=== PATIENT | female | born 1950 | race Caucasian/White ===

== ENCOUNTER 2019-04-14 17:04 | Emergency (ER) | payer MEDICARE, BC ==
[~2019-04-14] VITALS: Ht 165.1 cm; Wt 65.8 kg
[~2019-04-14 17:04] MED LIST: ATOR20TA37 PO; BUPR300T4 PO; RIVA20TA PO; TRAZ150T62 PO
[2019-04-14] MEDS ORDERED: HYDROcodone/APAP 5/325 TABLET ONE (17:41)
[2019-04-14] MEDS ORDERED: HYDROcodone/APAP 5/325 TABLET PO ONE (18:00)
[2019-04-14 18:46] VITALS: BP 154/60
== END 2019-04-14 18:48 | disposition home or self-care (01) ==
LOC: ED 18:20
DX: S06.0X0A Concussion without loss of consciousness, initial encounter (principal); S02.2XXA Fracture of nasal bones, initial encounter for closed fracture; W01.0XXA Fall on same level from slipping, tripping and stumbling without subsequent striking against object, initial encounter; Y93.89 Activity, other specified; Y92.89 Other specified places as the place of occurrence of the external cause; Y99.8 Other external cause status
CPT/HCPCS: 70450; 70486; 72125; 99284

== ENCOUNTER 2019-05-11 08:20 | Day surgery (SDC) | payer MEDICARE, BC | END 2019-05-11 09:30 | disposition home or self-care (01) | LOC: OUT 08:20 | PROVIDERS: ATTEND Internal Medicine Gastroenterology | DX: Z02.9 Encounter for administrative examinations, unspecified (principal) ==

== ENCOUNTER 2019-05-11 09:38 | Emergency (ER) | payer MEDICARE, BC ==
[~2019-05-11] VITALS: Ht 165.1 cm; Wt 57.2 kg
[2019-05-11 09:39] VITALS: BP 120/71
--- NOTE | 2019-05-11 09:50 | NUR ---
requested records from [facility]
[2019-05-11] MEDS ORDERED: DICYCLOMINE 10 MG/ML, 2ML IM ONE (10:00)
[2019-05-11] MEDS ORDERED: DICYCLOMINE 10 MG/ML, 2ML ONE (10:04)
[2019-05-11 10:22] LABS: BASOPHILS # (AUTO) 0.05 x10^3/uL (0-0.1); BASOPHILS % (AUTO) 1 % (0-1); EOSINOPHILS # (AUTO) 0.04 x10^3/uL (0-0.4); EOSINOPHILS % (AUTO) 1 % (1-7); LYMPHOCYTES # (AUTO) 1.34 x10^3/uL (1-3.4); LYMPHOCYTES % (AUTO) 24 % (22-44); MD NO; MEAN CORPUSCULAR HEMOGLOBIN 28.6 pg (27.0-34.8); MEAN CORPUSCULAR HGB CONC 32.5 g/dL (32.4-35.8); MEAN CORPUSCULAR VOLUME 88.2 fL (80-100); MEAN PLATELET VOLUME 7.6 fL (7.4-10.4); MONOCYTES # (AUTO) 0.57 x10^3/uL (0.2-0.8); MONOCYTES % (AUTO) 10 % (2-9); NEUTROPHILS # (AUTO) 3.63 x10^3/uL (1.8-6.8); NEUTROPHILS % (AUTO) 65 % (42-75); PLATELET COUNT 331 x10^3/uL (130-400); RED BLOOD COUNT 5.77 x10^6/uL (3.82-5.3); RED CELL DISTRIBUTION WIDTH 16.6 % (9.6-15.2)
[2019-05-11 10:33] LABS: ALBUMIN 3.1 g/dL (3.4-5.0); ANION GAP 6 mmol/L (5-15); CALCIUM 9.9 mg/dL (8.5-10.1); CHLORIDE 103 mmol/L (98-107)
[2019-05-11 10:36] LABS: ALANINE AMINOTRANSFERASE 14 U/L (12-78); ALKALINE PHOSPHATASE 103 U/L (45-117); BILIRUBIN,TOTAL 0.6 mg/dL (0.2-1.0); CREATININE 0.73 mg/dL (0.55-1.02)
[2019-05-11] MEDS ORDERED: PINK LADY ENEMA 490 ML BOTTLE PR ONE (11:00)
--- NOTE | 2019-05-11 11:20 | NUR ---
PHARMACY REQUEST SLIP SENT.
--- NOTE | 2019-05-11 11:24 | NUR ---
2nd request to [facility] for records.
--- NOTE | 2019-05-11 11:31 | NUR ---
PT PLACED ON 2L O2 D/T LOW SATS. SPO2 NOW 91-92%.
--- NOTE | 2019-05-11 11:54 | NUR ---
PT GIVEN ENEMA PER AUG. NO EXCREMENT RETURNED. PT STILL C/O BELLY PAIN. STATES "I GUESS I'LL GET A BAM DOG ON MY WAY HOME". CALL LIGHT IN REACH. ERP NOTIFIED.
== END 2019-05-11 13:04 | disposition home or self-care (01) ==
LOC: ED 10:16
DX: K59.00 Constipation, unspecified (principal); R10.84 Generalized abdominal pain; F17.200 Nicotine dependence, unspecified, uncomplicated; Z85.038 Personal history of other malignant neoplasm of large intestine
CPT/HCPCS: 36415; 74021; 80053; 83605; 85025; 93005; 96372; 99284; J0500

== ENCOUNTER 2019-07-19 10:16 | Day surgery (SDC) | payer MEDICARE, BC ==
[~2019-07-19] VITALS: Ht 165.1 cm; Wt 60.3 kg
[~2019-07-19 10:16] MED LIST changes: -BUPR300T4 PO; +BUPR300T94 PO
[2019-07-19] MEDS ORDERED: LACTATED RINGERS 1,000 ML IV SCH (10:42)
[2019-07-19 10:46] VITALS: BP 167/92
[2019-07-19] MEDS ORDERED: LIDOCAINE-MPF 1%, 2ML INFIL ONE (11:00)
[2019-07-19] MEDS ORDERED: DEXAMETHASONE 4 MG/ML, 1ML ONE ×2 (12:06)
[2019-07-19] MEDS ORDERED: ONDANSETRON 2MG/ML, 2ML ONE (12:07)
[2019-07-19] MEDS ORDERED: PROPOFOL 10 MG/ML, 20ML ONE ×3 (12:09→12:18)
[2019-07-19] MEDS ORDERED: PROPOFOL 50 ML ONE (12:30)
== END 2019-07-19 14:15 | disposition home or self-care (01) ==
LOC: OUT 10:16
PROVIDERS: ATTEND Internal Medicine
DX: Z08 Encounter for follow-up examination after completed treatment for malignant neoplasm (principal); K91.71 Accidental puncture and laceration of a digestive system organ or structure during a digestive system procedure; D12.5 Benign neoplasm of sigmoid colon; D12.3 Benign neoplasm of transverse colon; K57.30 Diverticulosis of large intestine without perforation or abscess without bleeding; K21.9 Gastro-esophageal reflux disease without esophagitis; K63.89 Other specified diseases of intestine; I69.354 Hemiplegia and hemiparesis following cerebral infarction affecting left non-dominant side; E03.9 Hypothyroidism, unspecified; D64.9 Anemia, unspecified; Z79.01 Long term (current) use of anticoagulants; Z79.899 Other long term (current) drug therapy; Z88.0 Allergy status to penicillin; Z88.2 Allergy status to sulfonamides; Z88.6 Allergy status to analgesic agent; Z88.8 Allergy status to other drugs, medicaments and biological substances; Z85.038 Personal history of other malignant neoplasm of large intestine; Z90.49 Acquired absence of other specified parts of digestive tract; Z98.84 Bariatric surgery status; Z80.0 Family history of malignant neoplasm of digestive organs; Y83.8 Other surgical procedures as the cause of abnormal reaction of the patient, or of later complication, without mention of misadventure at the time of the procedure
CPT/HCPCS: 45380; 45385; 88305; J1100; J2405; J2704; J7120

== ENCOUNTER 2020-06-09 21:17 | Emergency (ER) | payer MEDICARE, BC ==
[~2020-06-09] VITALS: Ht 165.1 cm; Wt 60.0 kg
--- NOTE | 2020-06-09 21:21 | NUR ---
LATE ENTRY DUE TO PATIENT CARE: PATIENT MICHELE WRIGHT WITH CHIEF C/O GLF. PER EMS PATIENT WAS PLAYING WITH HER KITTEN AND GOT "SCRATCHED UP" EMS REPORTS 50 mL BLOOD LOSS. PATIENT WAS IN BATHROOM CLEANING UP AND FELL, DENIES LOC, UNSURE IF SHE HIT HER HEAD, AND STATES SHE HIT HER HIP BUT UNSURE WHICH ONE SHE HURT. SHE STATES HER RIGHT HIP HURTS, BUT SHE STATES IT'S FROM HIP SURGERY SHE HAD IN 2019 AFTER SHE BROKE IT. 20 GAUGE IV STARTED RIGHT AC EN ROUTE, NO MEDICATION GIVEN. PER EMS PATIENT STABLE EN ROUTE. NADN, VSS, SIDE RAILS UP X2, CALL LIGHT WITHIN REACH.
[2020-06-09 22:17] LABS: BASOPHILS % (AUTO) 1 % (0-1); EOSINOPHILS % (AUTO) 1 % (1-7); LYMPHOCYTES % (AUTO) 15 % (22-44); MEAN CORPUSCULAR HEMOGLOBIN 30.9 pg (27.0-34.8); MEAN CORPUSCULAR HGB CONC 33.7 g/dL (32.4-35.8); MEAN PLATELET VOLUME 8.5 fL (7.4-10.4); MONOCYTES % (AUTO) 7 % (2-9); NEUTROPHILS % (AUTO) 76 % (42-75); PLATELET COUNT 243 x10^3/uL (130-400); RED BLOOD COUNT 4.93 x10^6/uL (3.82-5.3); RED CELL DISTRIBUTION WIDTH 15.2 % (9.6-15.2)
[2020-06-09 22:22] LABS: ALBUMIN 3.1 g/dL (3.4-5.0); ANION GAP 6 mmol/L (5-15); CALCIUM 8.6 mg/dL (8.5-10.1); CHLORIDE 111 mmol/L (98-107); CREATININE 0.72 mg/dL (0.55-1.02)
[2020-06-09 22:23] LABS: MD NO
--- NOTE | 2020-06-09 23:48 | NUR ---
REPORT FROM YADIRA HAGAN ASSUMING CARE OF PT. PT AMBULATORY PER REPORT ERP AWARE
[2020-06-09 23:50] VITALS: BP 131/64
== END 2020-06-09 23:58 | disposition home or self-care (01) ==
LOC: ED 22:16
DX: S91.114A Laceration without foreign body of right lesser toe(s) without damage to nail, initial encounter (principal); S50.811A Abrasion of right forearm, initial encounter; S60.511A Abrasion of right hand, initial encounter; S50.812A Abrasion of left forearm, initial encounter; R06.02 Shortness of breath; R00.9 Unspecified abnormalities of heart beat; R94.31 Abnormal electrocardiogram [ECG] [EKG]; F17.210 Nicotine dependence, cigarettes, uncomplicated; Z86.73 Personal history of transient ischemic attack (TIA), and cerebral infarction without residual deficits; Z85.038 Personal history of other malignant neoplasm of large intestine; W01.0XXA Fall on same level from slipping, tripping and stumbling without subsequent striking against object, initial encounter; Y93.89 Activity, other specified; Y92.89 Other specified places as the place of occurrence of the external cause; Y99.8 Other external cause status
CPT/HCPCS: 36415; 70450; 71045; 80048; 82040; 85025; 93005; 99285; 99406

== ENCOUNTER 2021-01-07 21:51 | Emergency (ER) | payer MEDICARE, BC ==
[~2021-01-07] VITALS: Ht 162.6 cm; Wt 59.1 kg
[2021-01-07] MEDS ORDERED: METHOCARBAMOL 750 MG TABLET PO ONE (22:30)
[2021-01-07] MEDS ORDERED: HYDROcodone/APAP 5/325 TABLET PO ONE (22:30)
[2021-01-07] MEDS ORDERED: LIDODERM 5% PATCH TD ONE ×2 (22:30→22:46)
[2021-01-07] MEDS ORDERED: METHOCARBAMOL 750 MG TABLET ONE (22:45)
[2021-01-07] MEDS ORDERED: HYDROcodone/APAP 5/325 TABLET ONE (22:46)
[2021-01-07] MEDS ORDERED: AA8/1CAP3 PO (23:15)
[2021-01-07] MEDS ORDERED: APIX5TAB4 PO (23:15)
[2021-01-07] MEDS ORDERED: GABA-827 PO (23:16)
--- NOTE | 2021-01-07 23:49 | NUR ---
Note tobyone in [facility] [place] - 01/07/21 at 2358 by [email or web address] DANNI JORGE TO GIVE 25% ALBUMIN 50ML FOR HYPOTENSION Addendum: 01/07/21 at 2352 by [email or web address] Amendment undone in [facility] [place] - 01/07/21 at 2358 by [email or web address] ALBUMIN 25% 100ML IN CORRECTION
--- NOTE | 2021-01-07 23:53 | NUR ---
Audra raines in [facility] - 01/07/21 at 2358 by [email or web address] DANNI Dawn SAID THAT GOAL BP IN THE 80'S SYSTOLIC
[2021-01-08] MEDS ORDERED: ALBUMIN HUMAN 25% 100 ML IV ONE
[2021-01-08 00:18] LABS: BASOPHILS % (AUTO) 1 % (0-1); EOSINOPHILS % (AUTO) 0 % (1-7); LYMPHOCYTES % (AUTO) 16 % (22-44); MEAN CORPUSCULAR HEMOGLOBIN 31.9 pg (27.0-34.8); MEAN CORPUSCULAR HGB CONC 33.6 g/dL (32.4-35.8); MEAN PLATELET VOLUME 8.7 fL (7.4-10.4); MONOCYTES % (AUTO) 7 % (2-9); NEUTROPHILS % (AUTO) 76 % (42-75); PLATELET COUNT 263 x10^3/uL (130-400); RED BLOOD COUNT 4.95 x10^6/uL (3.82-5.3); RED CELL DISTRIBUTION WIDTH 14.6 % (9.6-15.2)
[2021-01-08 00:29] LABS: ALBUMIN 3.2 g/dL (3.4-5.0); ANION GAP 3 mmol/L (5-15); CALCIUM 8.8 mg/dL (8.5-10.1); CHLORIDE 107 mmol/L (98-107); CREATININE 0.64 mg/dL (0.55-1.02)
[2021-01-08 00:33] LABS: TROPONIN I < 0.015 ng/mL (0.000-0.045)
[2021-01-08 01:48] VITALS: BP 134/65
--- NOTE | 2021-01-08 01:48 | NUR ---
GIA DRAPER SAID OKAY FOR PATIENT TO DISCHARGE HOME WITH SP02% AT 89%
== END 2021-01-08 02:06 | disposition home or self-care (01) ==
LOC: ED 22:34
DX: M54.5 Low back pain (principal); R00.1 Bradycardia, unspecified; R07.89 Other chest pain; F17.200 Nicotine dependence, unspecified, uncomplicated; Z86.73 Personal history of transient ischemic attack (TIA), and cerebral infarction without residual deficits; Z86.711 Personal history of pulmonary embolism; Z85.038 Personal history of other malignant neoplasm of large intestine
CPT/HCPCS: 36415; 71045; 80048; 82040; 83880; 84484; 85025; 93005; 99285

== ENCOUNTER 2021-01-27 21:50 | Inpatient (IN) | payer MEDICARE, BC ==
[~2021-01-27] VITALS: Ht 165.1 cm; Wt 72.4 kg
[~2021-01-27 21:50] MED LIST changes: +AA8/1CAP3 PO; +APIX5TAB4 PO; +GABA-827 PO
[2021-01-27] MEDS ORDERED: SODIUM CHLORIDE 0.9% 1,000 ML IV ONE (22:30)
[2021-01-27] MEDS ORDERED: SODIUM CHLORIDE FLUSH 10ML SYR IVF ONE (22:30)
[2021-01-27 22:33] LABS: BASOPHILS % (AUTO) 0 % (0-1); EOSINOPHILS % (AUTO) 0 % (1-7); LYMPHOCYTES % (AUTO) 3 % (22-44); MEAN CORPUSCULAR HGB CONC 33.9 g/dL (32.4-35.8); MONOCYTES % (AUTO) 4 % (2-9); NEUTROPHILS % (AUTO) 92 % (42-75); PLATELET COUNT 146 x10^3/uL (130-400); RED CELL DISTRIBUTION WIDTH 15.5 % (9.6-15.2)
[2021-01-27 22:46] LABS: ALBUMIN 2.6 g/dL (3.4-5.0); ANION GAP 8 mmol/L (5-15); CALCIUM 8.3 mg/dL (8.5-10.1); CHLORIDE 108 mmol/L (98-107)
--- NOTE | 2021-01-27 22:55 | NUR ---
Pt BIB [facility] from home for GLF. Pt states she has had multiple falls in the past couple days. No complaints of pain at this time. RA sat of 82%.
[2021-01-27 22:57] LABS: ALANINE AMINOTRANSFERASE 49 U/L (12-78); ALKALINE PHOSPHATASE 87 U/L (45-117); BILIRUBIN,TOTAL 0.7 mg/dL (0.2-1.0); CREATININE 1.02 mg/dL (0.55-1.02)
[2021-01-27] MEDS ORDERED: POTASSIUM CHLORIDE 40 MEQ in SODIUM CHLORIDE 0.9% 500 ML IV ONE (23:00)
[2021-01-27] MEDS ORDERED: MAGNESIUM SULFATE PMX 2GM/50ML 50 ML IV ONE (23:00)
[2021-01-27] MEDS ORDERED: POTASSIUM CHLORIDE 20 MEQ TAB.ER.PRT PO ONE (23:00)
[2021-01-27] MEDS ORDERED: MAGNESIUM SULFATE PMX 2GM/50ML 50 ML ONE (23:02)
[2021-01-27] MEDS ORDERED: POTASSIUM CHLORIDE 20 MEQ TAB.ER.PRT ONE (23:02)
--- NOTE | 2021-01-27 23:26 | NUR ---
meds admin, fluids infusing per order. pt tolerating well, nadn.
[2021-01-28] VITALS (7 sets, daily range): BP systolic 92–113; BP diastolic 52–72
--- NOTE | 2021-01-28 00:02 | NUR ---
smh at bedside for eval, straight cath ua after
[2021-01-28 00:28] LABS: MICROSCOPIC INDICATED
[2021-01-28] MEDS ORDERED: MELATONIN 5 MG TABLET PO PRN (00:30)
[2021-01-28] MEDS ORDERED: ONDANSETRON ODT 4 MG PO PRN (00:30)
[2021-01-28] MEDS ORDERED: DOCUSATE 100 MG CAPSULE PO PRN (00:30)
[2021-01-28] MEDS ORDERED: BISACODYL 10 MG SUPP PR PRN (00:30)
[2021-01-28] MEDS ORDERED: LABETALOL 5MG/ML, 20ML IVPush PRN (00:30)
[2021-01-28] MEDS ORDERED: POLYETHYLENE GLYCOL 17 GM PACKET PO PRN (00:30)
--- NOTE | 2021-01-28 01:03 | NUR ---
report called to Eusebia HAGAN in 341
[2021-01-28] MEDS ORDERED: CEFTRIAXONE 1,000 MG in DEXTROSE 5% 50 ML IVPB SCH (02:00)
[2021-01-28] MEDS: GABAPENTIN 300 MG CAPSULE PO SCH ×4 (02:31→20:24)
[2021-01-28] MEDS: ONDANSETRON 2MG/ML, 2ML IVPush PRN (02:31)
[2021-01-28] MEDS: NICOTINE 7 MG/24 HR PATCH.TD24 TD SCH (02:32)
[2021-01-28] MEDS: NS + 20MEQ KCL 1,000 ML IV SCH ×3 (03:09→18:51)
[2021-01-28] MEDS: TRAZODONE 150MG TABLET PO PRN (03:10)
[2021-01-28 05:13] LABS: ANION GAP 5 mmol/L (5-15); CALCIUM 8.1 mg/dL (8.5-10.1); CHLORIDE 112 mmol/L (98-107); CREATININE 0.86 mg/dL (0.55-1.02)
[2021-01-28] MEDS: APIXABAN 5 MG TABLET PO SCH ×2 (10:04→20:24)
[2021-01-28] MEDS: CHOLECALCIFEROL 1,000 UNIT TABLET PO SCH (10:04)
[2021-01-28] MEDS: ACETAMINOPHEN 325 MG TABLET PO PRN (15:05)
[2021-01-28] MEDS ORDERED: PIPERACILLIN/TAZO 3.375 GM in DEXTROSE 5% 50 ML IVPB SCH (15:30)
[2021-01-28] MEDS: CEFEPIME 2 GM in DEXTROSE 5% 100 ML IV SCH (18:10)
[2021-01-28] MEDS ORDERED: SODIUM CHLORIDE 0.9% 1,000ML IVBOLUS ONE (20:30)
[2021-01-29] MEDS: NICOTINE 7 MG/24 HR PATCH.TD24 TD SCH ×2 (01:36→20:00)
[2021-01-29] MEDS: CEFEPIME 2 GM in DEXTROSE 5% 100 ML IV SCH ×3 (01:36→18:16)
[2021-01-29 01:47] VITALS: BP 100/57
[2021-01-29] MEDS ORDERED: CEFTRIAXONE 2,000 MG in DEXTROSE 5% 50 ML IVPB SCH (02:00)
[2021-01-29] MEDS: NS + 20MEQ KCL 1,000 ML IV SCH (05:11)
[2021-01-29 07:17] VITALS: BP 101/62
[2021-01-29 07:45] LABS: BASOPHILS % (AUTO) 0 % (0-1); EOSINOPHILS % (AUTO) 1 % (1-7); LYMPHOCYTES % (AUTO) 8 % (22-44); MEAN CORPUSCULAR HEMOGLOBIN 31.4 pg (27.0-34.8); MEAN CORPUSCULAR HGB CONC 32.8 g/dL (32.4-35.8); MONOCYTES % (AUTO) 9 % (2-9); NEUTROPHILS % (AUTO) 82 % (42-75); PLATELET COUNT 120 x10^3/uL (130-400); RED BLOOD COUNT 4.02 x10^6/uL (3.82-5.3); RED CELL DISTRIBUTION WIDTH 15.5 % (9.6-15.2)
[2021-01-29 07:57] LABS: CALCIUM 7.3 mg/dL (8.5-10.1)
[2021-01-29 08:01] LABS: ALANINE AMINOTRANSFERASE 37 U/L (12-78); ALKALINE PHOSPHATASE 68 U/L (45-117); BILIRUBIN,TOTAL 0.6 mg/dL (0.2-1.0); CREATININE 0.68 mg/dL (0.55-1.02); TOTAL PROTEIN 5.5 g/dL (6.4-8.2)
[2021-01-29 08:14] LABS: ANION GAP 5 mmol/L (5-15); CHLORIDE 114 mmol/L (98-107)
[2021-01-29] MEDS: ACETAMINOPHEN 325 MG TABLET PO PRN (11:08)
[2021-01-29] MEDS: K-PHOS NEUTRAL 250MG TAB PO SCH ×2 (11:08→21:08)
[2021-01-29] MEDS: APIXABAN 5 MG TABLET PO SCH ×2 (11:08→21:09)
[2021-01-29] MEDS: CHOLECALCIFEROL 1,000 UNIT TABLET PO SCH (11:09)
[2021-01-29] MEDS: GABAPENTIN 300 MG CAPSULE PO SCH ×3 (11:09→22:56)
[2021-01-29 14:26] VITALS: BP 120/59
[2021-01-29] MEDS ORDERED: OMNIPAQUE 350 MG/ML, 100ML BOTTLE ONE (18:46)
[2021-01-29 19:16] VITALS: BP 110/69
[2021-01-29] MEDS: TRAZODONE 150MG TABLET PO PRN (22:57)
[2021-01-30 01:34] VITALS: BP 114/75
[2021-01-30] MEDS: CEFEPIME 2 GM in DEXTROSE 5% 100 ML IV SCH ×3 (02:00→17:04)
[2021-01-30 06:53] LABS: MEAN CORPUSCULAR HGB CONC 32.6 g/dL (32.4-35.8); MEAN PLATELET VOLUME 8.8 fL (7.4-10.4); PLATELET COUNT 139 x10^3/uL (130-400); RED BLOOD COUNT 4.24 x10^6/uL (3.82-5.3); RED CELL DISTRIBUTION WIDTH 15.3 % (9.6-15.2)
[2021-01-30 07:01] VITALS: BP 121/75
[2021-01-30 07:05] LABS: ALANINE AMINOTRANSFERASE 35 U/L (12-78); ALBUMIN 1.9 g/dL (3.4-5.0); ANION GAP 4 mmol/L (5-15); CALCIUM 7.7 mg/dL (8.5-10.1); CHLORIDE 113 mmol/L (98-107)
[2021-01-30 07:08] LABS: ALKALINE PHOSPHATASE 76 U/L (45-117); BILIRUBIN,TOTAL 0.4 mg/dL (0.2-1.0); CREATININE 0.52 mg/dL (0.55-1.02)
[2021-01-30] MEDS ORDERED: FUROSEMIDE 20 MG/2 ML IV ONE (07:30)
[2021-01-30 07:36] LABS: <RBC MORPHOLOGY> NORMAL; EOS#(MANUAL) 0.11 x10^3/uL (0.0-0.4); EOS% (MANUAL) 1 % (1-7); LYMPH#(MANUAL) 0.67 x10^3/uL (1-3.4); LYMPHS% (MANUAL) 6 % (22-44); METAMYELOCYTES# (MANUAL) 0.11 x10^3/uL (0-0); METAMYELOCYTES% (MANUAL) 1 % (0-1); MONOS#(MANUAL) 1.12 x10^3/uL (0.3-2.7); MONOS% (MANUAL) 10 % (2-9); SEG#(MANUAL) 9.18 x10^3/uL (1.8-6.8); SEGS% (MANUAL) 82 % (42-75)
[2021-01-30 07:37] LABS: <PLATELET ESTIMATE> ADEQUATE; <PLT MORPHOLOGY> NORMAL PLT MORPH
[2021-01-30] MEDS: APIXABAN 5 MG TABLET PO SCH ×2 (08:25→20:59)
[2021-01-30] MEDS: K-PHOS NEUTRAL 250MG TAB PO SCH ×2 (08:25→20:59)
[2021-01-30] MEDS: GABAPENTIN 300 MG CAPSULE PO SCH ×3 (08:25→20:59)
[2021-01-30] MEDS: CHOLECALCIFEROL 1,000 UNIT TABLET PO SCH (08:26)
[2021-01-30 12:29] VITALS: BP 118/70
[2021-01-30 19:38] VITALS: BP 120/75
[2021-01-30] MEDS: TRAZODONE 150MG TABLET PO PRN (20:59)
[2021-01-31 00:11] VITALS: BP 114/69
[2021-01-31] MEDS: CEFEPIME 2 GM in DEXTROSE 5% 100 ML IV SCH (02:19)
[2021-01-31] MEDS: NICOTINE 7 MG/24 HR PATCH.TD24 TD SCH (02:19)
[2021-01-31 07:23] VITALS: BP 145/78
[2021-01-31] MEDS ORDERED: CEFAZOLIN 1,000 MG in SODIUM CHLORIDE 0.9% 50 ML IV SCH (07:30)
[2021-01-31] MEDS: CHOLECALCIFEROL 1,000 UNIT TABLET PO SCH (09:00)
[2021-01-31] MEDS: FUROSEMIDE 20 MG TABLET PO SCH (09:07)
[2021-01-31] MEDS: CEFAZOLIN PMX 1GM/50ML 50 ML IV SCH ×3 (09:07→23:44)
[2021-01-31] MEDS: APIXABAN 5 MG TABLET PO SCH ×2 (09:07→21:15)
[2021-01-31] MEDS: GABAPENTIN 300 MG CAPSULE PO SCH ×3 (09:08→21:15)
[2021-01-31 09:10] LABS: MEAN CORPUSCULAR HEMOGLOBIN 31.5 pg (27.0-34.8); MEAN CORPUSCULAR HGB CONC 33.3 g/dL (32.4-35.8); MEAN PLATELET VOLUME 8.8 fL (7.4-10.4); PLATELET COUNT 180 x10^3/uL (130-400); RED BLOOD COUNT 4.37 x10^6/uL (3.82-5.3); RED CELL DISTRIBUTION WIDTH 15.1 % (9.6-15.2)
[2021-01-31 09:38] LABS: BAND#(MANUAL) 0.38 x10^3/uL; BANDS%(MANUAL) 5 % (0-7); LYMPH#(MANUAL) 0.84 x10^3/uL (1-3.4); LYMPHS% (MANUAL) 11 % (22-44); METAMYELOCYTES# (MANUAL) 0.15 x10^3/uL (0-0); METAMYELOCYTES% (MANUAL) 2 % (0-1); MONOS#(MANUAL) 1.29 x10^3/uL (0.3-2.7); MONOS% (MANUAL) 17 % (2-9); MYELOCYTES# (MANUAL) 0.15 x10^3/uL (0-0); MYELOCYTES% (MANUAL) 2 % (0-0); REACTIVE LYMPHS # (MANUAL) 0.08 x10^3/uL (0-0); REACTIVE LYMPHS % (MANUAL) 1 % (0-0); SEG#(MANUAL) 4.71 x10^3/uL (1.8-6.8); SEGS% (MANUAL) 62 % (42-75)
[2021-01-31 09:44] LABS: <RBC MORPHOLOGY> NORMAL
[2021-01-31 09:45] LABS: <PLATELET ESTIMATE> ADEQUATE; <PLT MORPHOLOGY> NORMAL PLT MORPH
[2021-01-31 09:59] LABS: ALBUMIN 2.2 g/dL (3.4-5.0); ALKALINE PHOSPHATASE 78 U/L (45-117); ANION GAP 4 mmol/L (5-15); BILIRUBIN,TOTAL 0.5 mg/dL (0.2-1.0); CALCIUM 8.7 mg/dL (8.5-10.1); CHLORIDE 111 mmol/L (98-107); TOTAL PROTEIN 6.3 g/dL (6.4-8.2)
[2021-01-31 10:23] LABS: ALANINE AMINOTRANSFERASE 30 U/L (12-78); CREATININE 0.64 mg/dL (0.55-1.02)
[2021-01-31 14:44] VITALS: BP 142/76
[2021-01-31 20:32] VITALS: BP 136/84
[2021-01-31] MEDS: TRAZODONE 150MG TABLET PO PRN (21:19)
[2021-02-01 00:08] VITALS: BP 100/66
[2021-02-01] MEDS: NICOTINE 7 MG/24 HR PATCH.TD24 TD SCH (02:37)
[2021-02-01 07:34] VITALS: BP 148/78
[2021-02-01] MEDS: CEFAZOLIN PMX 1GM/50ML 50 ML IV SCH ×2 (08:01→16:26)
[2021-02-01 10:01] LABS: MEAN CORPUSCULAR HEMOGLOBIN 31.3 pg (27.0-34.8); MEAN CORPUSCULAR HGB CONC 33.4 g/dL (32.4-35.8); MEAN PLATELET VOLUME 8.4 fL (7.4-10.4); PLATELET COUNT 223 x10^3/uL (130-400); RED BLOOD COUNT 4.55 x10^6/uL (3.82-5.3); RED CELL DISTRIBUTION WIDTH 14.9 % (9.6-15.2)
[2021-02-01 10:10] LABS: ALANINE AMINOTRANSFERASE 23 U/L (12-78); ALBUMIN 2.2 g/dL (3.4-5.0); ANION GAP 6 mmol/L (5-15); CHLORIDE 106 mmol/L (98-107)
[2021-02-01 10:13] LABS: ALKALINE PHOSPHATASE 73 U/L (45-117); BILIRUBIN,TOTAL 0.4 mg/dL (0.2-1.0); CREATININE 0.64 mg/dL (0.55-1.02); TOTAL PROTEIN 6.6 g/dL (6.4-8.2)
[2021-02-01] MEDS: CHOLECALCIFEROL 1,000 UNIT TABLET PO SCH (10:27)
[2021-02-01] MEDS: APIXABAN 5 MG TABLET PO SCH ×2 (10:28→21:57)
[2021-02-01] MEDS: FUROSEMIDE 20 MG TABLET PO SCH (10:28)
[2021-02-01] MEDS: GABAPENTIN 300 MG CAPSULE PO SCH ×3 (10:28→21:57)
[2021-02-01 10:35] LABS: <PLATELET ESTIMATE> ADEQUATE; <PLT MORPHOLOGY> NORMAL PLT MORPH; <RBC MORPHOLOGY> NORMAL; BAND#(MANUAL) 0.08 x10^3/uL; BANDS%(MANUAL) 1 % (0-7); EOS#(MANUAL) 0.16 x10^3/uL (0.0-0.4); EOS% (MANUAL) 2 % (1-7); LYMPHS% (MANUAL) 16 % (22-44); METAMYELOCYTES# (MANUAL) 0.16 x10^3/uL (0-0); METAMYELOCYTES% (MANUAL) 2 % (0-1); MONOS#(MANUAL) 1.13 x10^3/uL (0.3-2.7); MONOS% (MANUAL) 14 % (2-9); MYELOCYTES# (MANUAL) 0.24 x10^3/uL (0-0); MYELOCYTES% (MANUAL) 3 % (0-0); SEG#(MANUAL) 5.02 x10^3/uL (1.8-6.8); SEGS% (MANUAL) 62 % (42-75)
[2021-02-01 18:52] VITALS: BP 131/75
[2021-02-01] MEDS: TRAZODONE 150MG TABLET PO PRN (21:57)
[2021-02-01] MEDS: ONDANSETRON 2MG/ML, 2ML IVPush PRN (22:54)
[2021-02-02] MEDS: CEFAZOLIN PMX 1GM/50ML 50 ML IV SCH ×3 (00:37→17:44)
[2021-02-02 01:27] VITALS: BP 94/61
[2021-02-02] MEDS: NICOTINE 7 MG/24 HR PATCH.TD24 TD SCH (06:32)
[2021-02-02 07:58] VITALS: BP 106/60
[2021-02-02] MEDS: APIXABAN 5 MG TABLET PO SCH ×2 (08:36→21:29)
[2021-02-02] MEDS: FUROSEMIDE 20 MG TABLET PO SCH (08:36)
[2021-02-02] MEDS: CHOLECALCIFEROL 1,000 UNIT TABLET PO SCH (08:36)
[2021-02-02] MEDS: GABAPENTIN 300 MG CAPSULE PO SCH ×3 (08:36→21:29)
[2021-02-02 12:23] VITALS: BP 115/62
[2021-02-02 21:02] VITALS: BP 114/67
[2021-02-02] MEDS: TRAZODONE 150MG TABLET PO PRN (21:29)
[2021-02-03] MEDS: CEFAZOLIN PMX 1GM/50ML 50 ML IV SCH ×3 (00:31→17:04)
[2021-02-03 02:31] VITALS: BP 113/64
[2021-02-03] MEDS: NICOTINE 7 MG/24 HR PATCH.TD24 TD SCH (05:42)
[2021-02-03 07:52] VITALS: BP 136/64
[2021-02-03] MEDS: CHOLECALCIFEROL 1,000 UNIT TABLET PO SCH (09:41)
[2021-02-03] MEDS: GABAPENTIN 300 MG CAPSULE PO SCH ×3 (09:41→21:44)
[2021-02-03] MEDS: FUROSEMIDE 20 MG TABLET PO SCH (09:41)
[2021-02-03] MEDS: APIXABAN 5 MG TABLET PO SCH ×2 (09:49→21:44)
[2021-02-03 14:13] VITALS: BP 125/70
[2021-02-03 20:51] VITALS: BP 133/69
[2021-02-03] MEDS: TRAZODONE 150MG TABLET PO PRN (22:11)
[2021-02-04 00:43] VITALS: BP 98/63
[2021-02-04] MEDS: CEFAZOLIN PMX 1GM/50ML 50 ML IV SCH ×2 (01:08→09:19)
[2021-02-04] MEDS: NICOTINE 7 MG/24 HR PATCH.TD24 TD SCH (04:58)
[2021-02-04 05:50] LABS: MEAN CORPUSCULAR HEMOGLOBIN 31.3 pg (27.0-34.8); MEAN CORPUSCULAR HGB CONC 33.4 g/dL (32.4-35.8); MEAN PLATELET VOLUME 8.1 fL (7.4-10.4); PLATELET COUNT 318 x10^3/uL (130-400); RED BLOOD COUNT 4.64 x10^6/uL (3.82-5.3)
[2021-02-04 06:04] LABS: ALANINE AMINOTRANSFERASE 12 U/L (12-78); ALBUMIN 2.3 g/dL (3.4-5.0); ANION GAP 4 mmol/L (5-15); CALCIUM 9.3 mg/dL (8.5-10.1); CHLORIDE 105 mmol/L (98-107)
[2021-02-04 06:06] LABS: ALKALINE PHOSPHATASE 61 U/L (45-117); BILIRUBIN,TOTAL 0.4 mg/dL (0.2-1.0); TOTAL PROTEIN 6.8 g/dL (6.4-8.2)
[2021-02-04 06:24] LABS: BAND#(MANUAL) 0.33 x10^3/uL; BANDS%(MANUAL) 4 % (0-7); BASOS#(MANUAL) 0.08 x10^3/uL (0-0.1); BASOS% (MANUAL) 1 % (0-1); LYMPHS% (MANUAL) 22 % (22-44); METAMYELOCYTES# (MANUAL) 0.16 x10^3/uL (0-0); METAMYELOCYTES% (MANUAL) 2 % (0-1); MONOS#(MANUAL) 0.74 x10^3/uL (0.3-2.7); MONOS% (MANUAL) 9 % (2-9); SEG#(MANUAL) 5.08 x10^3/uL (1.8-6.8); SEGS% (MANUAL) 62 % (42-75)
[2021-02-04 06:25] LABS: <PLATELET ESTIMATE> ADEQUATE; <PLT MORPHOLOGY> NORMAL PLT MORPH; <RBC MORPHOLOGY> NORMAL
[2021-02-04 08:17] VITALS: BP 98/64
[2021-02-04] MEDS: CHOLECALCIFEROL 1,000 UNIT TABLET PO SCH (09:19)
[2021-02-04] MEDS: APIXABAN 5 MG TABLET PO SCH (09:19)
[2021-02-04] MEDS: FUROSEMIDE 20 MG TABLET PO SCH (09:19)
[2021-02-04] MEDS: GABAPENTIN 300 MG CAPSULE PO SCH (09:19)
[2021-02-04] MEDS ORDERED: CIPROFLOXACIN 500 MG TABLET PO SCH (10:30)
[2021-02-04] MEDS ORDERED: CIPR500T87 PO (13:11)
[2021-02-04 13:39] VITALS: BP 101/67
== END 2021-02-04 16:31 | disposition home health service (06) | DRG 204 ==
LOC: ED 23:00 → EDIP 01-28 01:32 → 3N 01-28 01:59
PROVIDERS: ADMIT Internal Medicine; ATTEND Internal Medicine
DX: J80 Acute respiratory distress syndrome (principal); A41.51 Sepsis due to Escherichia coli [E. coli]; E43 Unspecified severe protein-calorie malnutrition; R65.20 Severe sepsis without septic shock; N39.0 Urinary tract infection, site not specified; J90 Pleural effusion, not elsewhere classified; Z66 Do not resuscitate; E87.6 Hypokalemia; B96.20 Unspecified Escherichia coli [E. coli] as the cause of diseases classified elsewhere; E83.39 Other disorders of phosphorus metabolism; E83.42 Hypomagnesemia; E86.0 Dehydration; E87.70 Fluid overload, unspecified; F17.200 Nicotine dependence, unspecified, uncomplicated; I71.9 Aortic aneurysm of unspecified site, without rupture; N20.0 Calculus of kidney; R29.6 Repeated falls; R62.7 Adult failure to thrive; F10.20 Alcohol dependence, uncomplicated; Z60.2 Problems related to living alone; W18.30XA Fall on same level, unspecified, initial encounter; Y92.009 Unspecified place in unspecified non-institutional (private) residence as the place of occurrence of the external cause; Z79.01 Long term (current) use of anticoagulants; Z80.0 Family history of malignant neoplasm of digestive organs; Z80.3 Family history of malignant neoplasm of breast; Z83.3 Family history of diabetes mellitus; Z85.038 Personal history of other malignant neoplasm of large intestine; Z86.711 Personal history of pulmonary embolism; Z86.73 Personal history of transient ischemic attack (TIA), and cerebral infarction without residual deficits; Z87.440 Personal history of urinary (tract) infections; Z90.49 Acquired absence of other specified parts of digestive tract; Z88.0 Allergy status to penicillin; Z88.2 Allergy status to sulfonamides; Z88.8 Allergy status to other drugs, medicaments and biological substances; Z68.26 Body mass index [BMI] 26.0-26.9, adult
CPT/HCPCS: 36415; 71045; 71275; 80048; 80053; 81001; 82306; 83036; 83605; 83735; 83880; 84100; 84145; 84436; 84443; 84481; 85025; 85379; 87040; 87077; 87086; 87186; 93005; 93306; 93356; 96365; 96366; 96375; G0378; J0690; J0696; J2405; J3480; Q9967; J1940; J3475; J7030; J7040